=== PATIENT | female | born 1975 | race Caucasian/White ===

== ENCOUNTER 2022-02-13 15:59 | Emergency (ER) | payer OTHER ==
[2022-02-13] MEDS ORDERED: SULFAMETHOXAZOLE/TRIMETHOPRIM 800MG/160MG D.S. TABLET PO ONE (17:45)
[2022-02-13] MEDS ORDERED: IBUPROFEN 600 MG TABLET (FP) PO ONE (17:46)
[2022-02-13 17:59] VITALS: BP 138/82; PULSE 92; TEMP 98.4; BMI 25.7
== END 2022-02-13 18:12 | disposition home or self-care (01) ==
LOC: FER 15:59
PROC: 0H9CXZZ Drainage of Left Upper Arm Skin, External Approach (ICD-10-PCS; principal; 2022-02-13)
DX: L02.412 Cutaneous abscess of left axilla (principal)
CPT/HCPCS: 99283-25

== ENCOUNTER 2022-02-16 14:31 | Emergency (ER) | payer OTHER ==
[2022-02-16 14:45] VITALS: BP 128/76; PULSE 72; TEMP 98.6
== END 2022-02-16 14:52 | disposition home or self-care (01) ==
LOC: FER 14:31
DX: L02.412 Cutaneous abscess of left axilla (principal); Z48.01 Encounter for change or removal of surgical wound dressing
CPT/HCPCS: 99281-25